=== PATIENT | female | born 1970 | race American Indian/Alaskan Native ===

== ENCOUNTER 2016-08-17 08:20 | Outpatient (CLI) | payer BC ==
--- NOTE | 2016-08-17 14:11 | Ultrasound Report ---
TRANSABDOMINAL AND TRANSVAGINAL PELVIC ULTRASOUND: 08/17/16 08:20:00 CLINICAL: Left lower quadrant pain. FINDINGS: Transabdominal and transvaginal pelvic ultrasound demonstrated a normal uterus measuring 11.3 x 4.7 x 5.9 cm. Normal uterine contour and echogenicity. A normal proliferative endometrium measures 15.1 mm AP thickness. Normal right ovary. The right ovary measures 2.9 x 1.2 x 1.6cm. A cyst of the left ovary with thin septations measures 1.8 x 1.7 x 1.4 cm. The left ovary measures 2.7 x 2.2 x 1.9cm. No adnexal mass. No free fluid. Normal urinary bladder. IMPRESSION: 1. A 1.8 cm septated cyst of the left ovary may be a late stage hemorrhagic cyst or endometrioma. 2. Normal uterus and right ovary.
--- NOTE | 2016-08-17 14:21 | Ultrasound Report ---
RIGHT UPPER QUADRANT ABDOMINAL ULTRASOUND: 08/17/16 08:20:00 CLINICAL: Abdominal pain. FINDINGS: High-resolution ultrasound demonstrated normal size liver with normal contour and echogenicity. No liver mass. Normal hepatic vasculature and inferior vena cava. Normally distended gallbladder with no stones. The gall bladder wall measures 2.3 mm in thickness. Normal intrahepatic and extra hepatic bile ducts. The common bile duct measures 3.0 mm diameter. The pancreas was well imaged and normal. Normal upper abdominal aorta. The right kidney is normal and measures 11.8 x 4.2 x 4.8cm. No ascites or mass. IMPRESSION: Normal study. No cholelithiasis.
== END 2016-08-17 08:21 | disposition home or self-care (01) ==
LOC: SPVWC 08:20
PROVIDERS: ATTEND Internal Medicine
DX: N83.202 Unspecified ovarian cyst, left side (principal)
CPT/HCPCS: 76705; 76830; 76856